=== PATIENT | male | born 1950 | race Caucasian/White ===

== ENCOUNTER → 2018-06-05 | Outpatient (CLI) | payer OTHER ==
[~2018-06-05] MED LIST: ACET600C5 PO; AMLO10TA2 PO; ASPI-621 PO; FISH OIL PO; SIMV10TA3 PO
[2018-06-05 10:40] LABS: MICROSCOPIC NOT IND
[2018-06-05 10:45] LABS: MEAN CORPUSCULAR HEMOGLOBIN 30.7 pg (27.5-34.5); MEAN CORPUSCULAR HGB CONC 33.4 g/dL (33.2-36.2); MEAN CORPUSCULAR VOLUME 91.8 fL (81-97); MEAN PLATELET VOLUME 9.2 fL (7.4-10.4); PLATELET COUNT 195 x10^3/uL (130-400); RED BLOOD COUNT 4.89 x10^6/uL (4.38-5.82); RED CELL DISTRIBUTION WIDTH 14.5 % (9.4-14.8)
[2018-06-05 10:51] LABS: ALANINE AMINOTRANSFERASE 32 U/L (12-78); ALBUMIN 3.8 g/dL (3.4-5.0); ANION GAP 8 mmol/L (5-15); CALCIUM 8.5 mg/dL (8.5-10.1); CHLORIDE 110 mmol/L (98-107)
[2018-06-05 10:54] LABS: ALKALINE PHOSPHATASE 91 U/L (45-117); BILIRUBIN,TOTAL 0.5 mg/dL (0.2-1.0); TOTAL PROTEIN 6.6 g/dL (6.4-8.2)
[2018-06-05 11:11] LABS: MD YES
[2018-06-05 11:15] LABS: LYMPH#(MANUAL) 39.42 x10^3/uL (1-3.4); LYMPHS% (MANUAL) 79 % (22-44); MONOS% (MANUAL) 3 % (2-9); SEG#(MANUAL) 8.98 x10^3/uL (1.8-6.8); SEGS% (MANUAL) 18 % (42-75)
[2018-06-05 11:16] LABS: <PLATELET ESTIMATE> ADEQUATE; <PLT MORPHOLOGY> NORMAL PLT MORPH; ANISOCYTOSIS 1+
[2018-06-05 11:17] LABS: SMUDGE CELLS 2+
== END | disposition home or self-care (01) ==
LOC: STAR 09:37
PROVIDERS: ATTEND Urology
DX: Z01.818 Encounter for other preprocedural examination (principal); D49.519 Neoplasm of unspecified behavior of unspecified kidney; R00.1 Bradycardia, unspecified
CPT/HCPCS: 36415; 80053; 81003; 85025; 87077; 87086; 87186; 93005

== ENCOUNTER 2018-06-19 05:13 | Inpatient (IN) | payer OTHER ==
[~2018-06-19] VITALS: Ht 180.3 cm; Wt 79.5 kg
[~2018-06-19 05:13] MED LIST changes: -AMLO10TA2 PO; +AMLO10TA6 PO
[2018-06-19] MEDS ORDERED: LACTATED RINGERS 1,000 ML IV SCH (06:16)
[2018-06-19 06:18] VITALS: BP 137/88
[2018-06-19 06:21] VITALS: BP 137/88
[2018-06-19] MEDS ORDERED: THROMBIN 5,000 UNIT VIAL TP ONE (06:48)
[2018-06-19] MEDS ORDERED: BUPIVACAINE/PF-EPI 0.25% 1:200K ONE (06:48)
[2018-06-19] MEDS ORDERED: PROPOFOL 10 MG/ML, 20ML ONE ×3 (06:50→10:57)
[2018-06-19] MEDS ORDERED: ONDANSETRON 2MG/ML, 2ML ONE (06:50)
[2018-06-19] MEDS ORDERED: PHENYLEPHRINE 10 MG/ML ONE (06:50)
[2018-06-19] MEDS ORDERED: ROCURONIUM 10MG/ML,5ML ONE ×2 (06:50→07:57)
[2018-06-19] MEDS ORDERED: DEXAMETHASONE 4 MG/ML, 1ML ONE (06:50)
[2018-06-19] MEDS ORDERED: LIDOCAINE-MPF 2% ,5ML ONE (06:51)
[2018-06-19] MEDS ORDERED: CEFAZOLIN 1,000 MG ONE (06:51)
[2018-06-19] MEDS ORDERED: MIDAZOLAM 1 MG/ML, 2ML ONE (07:11)
[2018-06-19] MEDS ORDERED: EPHEDRINE 50 MG/ML, 1ML ONE (07:20)
[2018-06-19] MEDS ORDERED: FENTANYL PF 100 MCG/2ML ONE ×3 (07:54→11:51)
[2018-06-19] MEDS ORDERED: SUGAMMADEX 200 MG/2 ML IVPush ONE (08:22)
[2018-06-19] MEDS ORDERED: BUPIVACAINE/PF-EPI 0.25% 1:200K INFIL ONE (08:28)
[2018-06-19] MEDS ORDERED: MORPHINE SULFATE 4 MG/ML, 1ML IVPush PRN (08:30)
[2018-06-19] MEDS ORDERED: MEPERIDINE/PF 25MG/0.5ML IVPush PRN (08:30)
[2018-06-19] MEDS ORDERED: OXYcodone 5 MG/5 ML ORAL.SOL UDC PO PRN (08:30)
[2018-06-19] MEDS ORDERED: HYDROcodone/APAP 7.5-325MG/15ML UDC PO PRN (08:30)
[2018-06-19] MEDS ORDERED: FUROSEMIDE 20 MG/2 ML ONE (08:51)
[2018-06-19] MEDS ORDERED: MANNITOL PMX 20% 500 ML ONE (08:58)
[2018-06-19] MEDS: FENTANYL PF 100 MCG/2ML IV PRN ×2 (11:50→11:55)
[2018-06-19] MEDS ORDERED: HYDROcodone/APAP 7.5-325MG/15ML UDC ONE (11:59)
[2018-06-19] MEDS: HYDROmorphone 1 MG/ML, 1ML IV PRN ×6 (12:00→12:38)
[2018-06-19] MEDS ORDERED: HYDROmorphone 2 MG/ML, 1ML ONE ×2 (12:00→12:36)
[2018-06-19 12:15] LABS: ALBUMIN 3.8 g/dL (3.4-5.0); ANION GAP 12 mmol/L (5-15); CALCIUM 8.4 mg/dL (8.5-10.1); CHLORIDE 106 mmol/L (98-107)
[2018-06-19] MEDS ORDERED: OXYcodone 5 MG/5 ML ORAL.SOL UDC ONE (12:26)
[2018-06-19 13:42] VITALS: BP 121/75
[2018-06-19] MEDS ORDERED: ONDANSETRON 2MG/ML, 2ML IV PRN (14:30)
[2018-06-19] MEDS ORDERED: TEMAZEPAM 15 MG CAPSULE PO PRN (14:30)
[2018-06-19] MEDS ORDERED: morphine SULFATE 10 MG/ML, 1ML IV PRN (14:30)
[2018-06-19] MEDS ORDERED: ONDANSETRON ODT 4 MG ONE (15:34)
[2018-06-19] MEDS: D5%-0.45NACL+KCL 20MEQ 1,000 ML IV SCH ×2 (15:37→23:37)
[2018-06-19] MEDS: CEFAZOLIN PMX 1GM/50ML 50 ML IVPB SCH ×2 (15:37→23:36)
[2018-06-19] MEDS: ONDANSETRON 4 MG TABLET PO PRN (15:44)
[2018-06-19 19:19] VITALS: BP 117/74
[2018-06-19] MEDS: SIMVASTATIN 10 MG TABLET PO SCH (21:24)
[2018-06-19] MEDS: HYDROcodone/APAP 5/325 TABLET PO PRN (21:31)
[2018-06-20 01:30] VITALS: BP 123/75
[2018-06-20 04:30] VITALS: BP 118/68
[2018-06-20 06:23] LABS: CHLORIDE 107 mmol/L (98-107)
[2018-06-20 06:31] LABS: ANION GAP 10 mmol/L (5-15); CALCIUM 8.4 mg/dL (8.5-10.1); CREATININE 1.54 mg/dL (0.7-1.3)
[2018-06-20] MEDS: D5%-0.45NACL+KCL 20MEQ 1,000 ML IV SCH ×2 (07:59→20:09)
[2018-06-20] MEDS: AMLODIPINE 10 MG TAB PO SCH (08:00)
[2018-06-20 09:40] VITALS: BP 121/70
[2018-06-20 13:58] VITALS: BP 123/71
[2018-06-20] MEDS: ONDANSETRON 4 MG TABLET PO PRN ×2 (14:29)
[2018-06-20] MEDS: HYDROcodone/APAP 5/325 TABLET PO PRN ×3 (14:29→23:51)
[2018-06-20] MEDS ORDERED: ACETAMINOPHEN 325 MG TABLET PO PRN (15:00)
[2018-06-20 18:41] VITALS: BP 132/74
[2018-06-20] MEDS: SIMVASTATIN 10 MG TABLET PO SCH (21:00)
[2018-06-21 03:58] VITALS: BP 127/81
[2018-06-21] MEDS: D5%-0.45NACL+KCL 20MEQ 1,000 ML IV SCH (04:26)
[2018-06-21 05:30] LABS: ANION GAP 7 mmol/L (5-15); CALCIUM 8.5 mg/dL (8.5-10.1); CHLORIDE 109 mmol/L (98-107); CREATININE 1.59 mg/dL (0.7-1.3)
[2018-06-21 08:05] VITALS: BP 135/81
[2018-06-21] MEDS: AMLODIPINE 10 MG TAB PO SCH (09:15)
[2018-06-21] MEDS: HYDROcodone/APAP 5/325 TABLET PO PRN (09:15)
[2018-06-21] MEDS ORDERED: HYDR-3240 PO (11:21)
[2018-06-21] MEDS ORDERED: ONDA4TAB10 PO (11:22)
== END 2018-06-21 12:33 | disposition home or self-care (01) | DRG 656 ==
LOC: OR 05:13 → 4NOR 13:13 → OUT 13:41
PROVIDERS: ADMIT Urology; ATTEND Urology
PROC: 8E0W4CZ Robotic Assisted Procedure of Trunk Region, Percutaneous Endoscopic Approach (ICD-10-PCS; 2018-06-19)
PROC: BT42ZZZ Ultrasonography of Left Kidney (ICD-10-PCS; 2018-06-19)
PROC: 0TB14ZZ Excision of Left Kidney, Percutaneous Endoscopic Approach (ICD-10-PCS; principal; 2018-06-19 07:30)
DX: D49.512 Neoplasm of unspecified behavior of left kidney (principal); N17.0 Acute kidney failure with tubular necrosis; N28.89 Other specified disorders of kidney and ureter; Z85.46 Personal history of malignant neoplasm of prostate
CPT/HCPCS: 36415; 80048; 82040; 82570; 85014; 85018; 86850; 86900; 88307; C1729; G0378; J0690; J1100; J1170; J2250; J2405; J2704; J3010; J3490; Q0162; C1760; J1940; J2370; J3480; J7120